=== PATIENT | female | born 1965 | race Caucasian/White ===

== ENCOUNTER → 2016-05-22 | Outpatient (CLI) | payer OTHER ==
[~2016-05-22] MED LIST: ATROPINE SULFATE 0.1 MG/ML 5ML SYR ONE; DOBUTamine HCL 12.5 MG/ML 20 ML VIAL ONE; METOPROLOL TARTRATE 1 MG/ML VIAL ONE; PERFLUTREN LIPID MICROSPHERE (DEFINITY) IV ONE
--- NOTE | 2016-05-22 18:01 | DOBUTAMINE ECHO ---
*NOTICE TO RECEIVING CONSTITUTION PARTY AGENCY This information is strictly Confidential and protected under [place] law. [place] law prohibits you from making any further disclosure of this information unless further disclosure is expressly permitted by the written consent of the person to whom it pertains or is authorized by law. A general authorization for the release of medical or other information is not sufficient for this purpose. Hospital accepts no responsibility if the information is made available to any other person, INCLUDING THE PATIENT. Interpretation Summary * Name: CAREN BROWNING Study Date: 05/22/2016 09:03 AM BP: 119/72 mmHg * Patient Location: [facility] HR: 78 * : 1965 (M/d/yyyy) Gender: Female Height: 65 in * Age: 50 yrs Ethnicity: [place] Weight: 128 lb * Ordering Physician: Candelario Andrade * Referring Physician: Candelario Andrade * Performed By: Kenna Posada * * Reason For Study: DYSPNEA ON EXERTION * BSA: 1.6 m2 * -- Conclusions -- * Stress Echo: * 1. Negative Dobutamine stress echo for ischemia at 87% MPHR. * 2. Negative Dobutamine ECG for ischemia at 87% MPHR. * 3. No chest pain reported. * 4. No arrhythmia. * 5. Appropriate blood pressure response. * 6.Technically difficult study, enhanced with IV Definity. * Echo: * 1. Normal left ventricular size and systolic function. EF 60%. No regional wall motion abnormalities. No left ventricular hypertrophy. Type 1 diastolic dysfunction. * 2. No significant valvular abnormalities. * 3. Normal estimated right ventricular systolic pressure; 24 mmHg. * 4. No prior study available for comparison. Procedure Details * DOBUTAMINE ECHO, CPT#[id number] * ECHO DOPPLER, CPT #[id number] * ECHO COLOR FLOW, CPT #[id number] * A contrast injection of Definity was performed to improve assessment of LV function. * Contrast was injected into an intravenous site in the left arm. * One vial of Definity ultrasound contrast was diluted in normal saline to a total volume of 10 ml. A total of '6' ml of solution was administered during imaging. * Lot # [id number] of Definity utilized for procedure. * Expiration date 06/01/17. * The attending nurse who injected the contrast agent was VICKI ALICIA RN. Left Ventricle * The left ventricle is normal in size. * There is normal left ventricular wall thickness. * Left ventricular systolic function is normal. * The left ventricular ejection fraction increases normally with stress. The left ventricular end-systolic cavity size reduces post-stress (normal response). The left ventricular wall motion with stress is normal. * Resting wall motion: Normal. Stress wall motion: Appropriate increase in Left ventricular systolic function and decrease in cavity size. No stress induced segmental wall motion abnormalities. Right Ventricle * The right ventricle is normal in size and function. Atria * The left atrial size is normal. * Right atrial size is normal. * There is no evidence of atrial septal defect, but resolution does not allow assessment for a patent foramen ovale. Mitral Valve * The mitral valve is normal in structure and function. * There is no mitral valve stenosis. * There is trace mitral regurgitation. Tricuspid Valve * The tricuspid valve is not well visualized, but is grossly normal. * There is no tricuspid stenosis. * There is trace tricuspid regurgitation. Aortic Valve * The aortic valve is normal in structure and function. * The aortic valve is trileaflet. * No hemodynamically significant valvular aortic stenosis. * No aortic regurgitation is present. Pulmonic Valve * The pulmonary valve is inadequately visualized, but the Doppler data is adequate for interpretation. * There is no significant pulmonary regurgitation. Great Vessels * The aortic root is normal size. * Normal IVC size and inspiratory collapse. Pericardium * There is no pericardial effusion. Stress Parameters * NSR at 75 bpm. * Stress ECG: No ST changes. No arrhythmias. * No arrhythmia were noted with stress. * The stress portion of this study was personally supervised by the undersigned interpreting physician. * Rest heart rate was '78' BPM. * Rest blood pressure was '119/72' * Maximum heart rate achieved was 148 bpm. * Maximum heart rate was 87 % of maximum age-predicted heart rate. * Maximum blood pressure was '127/57' * Total exercise time was '12:00' * Maximum Dobutamine infusion rate was '30' mcg/kg/min. * Dobutamine infusion was terminated due to achieving target heart rate * A total of 5 mg of IV Metoprolol was administered to reverse Dobutamine-induced tachycardia. * The patient did not exhibit any symptoms during drug infusion. * Normal blood pressure response to exercise. MMode 2D Measurements and Calculations IVSd 1.0 cm IVSs 1.3 cm LVIDd 4.1 cm LVIDs 2.8 cm LVPWd 0.88 cm LVPWs 1.5 cm IVS/LVPW 1.2 FS 31.0 % EDV(Teich) 73.1 ml ESV(Teich) 29.8 ml EF(Teich) 59.2 % EDV(cubed) 67.6 ml ESV(cubed) 22.2 ml EF(cubed) 67.1 % % IVS thick 25.3 % % LVPW thick 65.3 % LV mass(C)d 124.2 grams LV mass(C)dI 75.9 grams/m\S\2 LV mass(C)s 126.6 grams LV mass(C)sI 77.4 grams/m\S\2 CO(Teich) 3.0 l/min CI(Teich) 1.8 l/min/m\S\2 SV(Teich) 43.2 ml SI(Teich) 26.4 ml/m\S\2 CO(cubed) 3.1 l/min CI(cubed) 1.9 l/min/m\S\2 SV(cubed) 45.4 ml SI(cubed) 27.7 ml/m\S\2 Ao root diam 3.2 cm Ao root area 8.1 cm\S\2 ACS 1.2 cm LA dimension 2.9 cm asc Aorta Diam 2.9 cm LA/Ao 0.90 LVOT diam 2.1 cm LVOT area 3.5 cm\S\2 LVAd ap4 28.8 cm\S\2 LVLd ap4 7.7 cm EDV(MOD-sp4) 92.2 ml EDV(sp4-el) 92.6 ml LVAs ap4 15.2 cm\S\2 LVLs ap4 6.4 cm ESV(MOD-sp4) 37.3 ml ESV(sp4-el) 35.6 ml EF(MOD-sp4) 59.6 % EF(sp4-el) 61.6 % LVLd ap2 7.7 cm LVAs ap2 14.1 cm\S\2 LVLs ap2 6.4 cm CO(MOD-sp4) 3.8 l/min CI(MOD-sp4) 2.3 l/min/m\S\2 SV(MOD-sp4) 55.0 ml SI(MOD-sp4) 33.6 ml/m\S\2 CO(sp4-el) 3.9 l/min CI(sp4-el) 2.4 l/min/m\S\2 SV(sp4-el) 57.0 ml SI(sp4-el) 34.8 ml/m\S\2 Doppler Measurements and Calculations MV E max gabriele 63.1 cm/sec MV A max gabriele 73.0 cm/sec MV E/A 0.86 MV dec time 0.26 sec Ao V2 max 107.0 cm/sec Ao max PG 4.6 mmHg Ao max PG (full) 1.2 mmHg FRANCINE(V,A) 3.1 cm\S\2 FRANCINE(V,D) 3.1 cm\S\2 LV V1 max PG 3.4 mmHg LV V1 max 92.5 cm/sec PA V2 max 48.1 cm/sec PA max PG 0.93 mmHg TR max gabriele 227.4 cm/sec RVSP(TR) 23.7 mmHg RAP systole 3.0 mmHg
== END | disposition home or self-care (01) ==
LOC: C.CPL 08:02
PROVIDERS: ATTEND Internal Medicine Critical Care Medicine
DX: F17.200 Nicotine dependence, unspecified, uncomplicated (principal); J43.9 Emphysema, unspecified; R06.09 Other forms of dyspnea

== ENCOUNTER → 2016-10-09 | Outpatient (CLI) | payer OTHER ==
--- NOTE | 2016-10-09 08:45 | DIAGNOSTIC IMAGING REPORT ---
TEMPORAL ORB/SELLA/TEMP W/O CLINICAL HISTORY: H92.09 Mastoid painLEFT MASTOID PAIN WITH POSSIBLE FINDINGS ON A post treatment scan TECHNIQUE: Transaxial acquisition with multi axial reformatted images COMPARISON STUDY: None FINDINGS: The right mastoid air cells are clear. Left mastoid air cells are primarily clear. There is a 10 x 8 mm geographic region of soft tissue opacification of the left lateral mastoid. No associated bony destruction is present. There may be a slight degree of sclerotic change of the remaining mastoid air cells. The scutum is intact bilaterally. The ossicles of the middle ear are intact. The attic is unremarkable bilaterally. No evidence for abnormality of the tympanic membranes. The external auditory canals are unremarkable. The semicircular canals are within normal limits bilaterally. IMPRESSION: 1. Focal 10 x 8 mm geographic region of mucosal thickening of the left lateral mastoid. 2. Minimal sclerosis of the remaining mastoid air cells with no evidence for bony destructive change. 3. Structures the middle ear including scutum and tympanic membrane are unremarkable. 4. Semicircular canals are symmetric and unremarkable. The above report was generated using voice recognition software. It may contain grammatical, syntax or spelling errors. Electronically signed by: Rivera Navarro M.D. 10/09/2016 8:43 AM Dictated Date/Time: 10/09/2016 8:38 AM
== END | disposition home or self-care (01) ==
LOC: C.CTS 08:23
PROVIDERS: ATTEND Physician Assistant
DX: H92.09 Otalgia, unspecified ear (principal)

== ENCOUNTER → 2017-05-14 | Outpatient (CLI) | payer OTHER ==
--- NOTE | 2017-05-14 09:34 | DIAGNOSTIC IMAGING REPORT ---
(CHEST) THORAX WITHOUT CT DOSE: 237.54 mGycm CLINICAL HISTORY: 51 years-old Female with F17.200 Nicotine [id number] Pulmonary twzzjqdbkR53.09 Dyspn. Acute shortness of breath with emphysema TECHNIQUE: Multiaxial CT images of the chest were performed without contrast. A dose lowering technique was utilized adhering to the principles of ALARA. COMPARISON: None. FINDINGS: 8 mm calcification of the right thyroid lobe. No dominant thyroid nodule identified. No pathologic adenopathy identified. Coronary arterial disease. The heart is normal in size. No thoracic aortic aneurysm identified. The opacified pulmonary arterial tree is unremarkable. Moderate to severe emphysema with areas of chronic interstitial coarsening. No pneumothorax or pleural effusion. No overt pulmonary edema. Subcentimeter calcified granuloma of the left lower lobe. 2 mm perifissural lymph node adjacent to the inferior segment lingula. Mild biapical pleural-parenchymal scarring. The central airways are patent. No acute abnormality of the imaged upper abdomen. Soft tissues are unremarkable. Bones appear intact. Multilevel mild endplate spurring about the spine. IMPRESSION: 1. No acute intrathoracic abnormality identified. 2. Moderate to severe emphysema without lobar airspace consolidation or pathologic adenopathy. Electronically signed by: Bill Keller M.D. 05/14/2017 9:33 AM Dictated Date/Time: 05/14/2017 9:13 AM
== END | disposition home or self-care (01) ==
LOC: C.CTS 09:00
PROVIDERS: ATTEND Physician Assistant
DX: J47.9 Bronchiectasis, uncomplicated (principal); F17.200 Nicotine dependence, unspecified, uncomplicated; R06.09 Other forms of dyspnea; J43.9 Emphysema, unspecified